=== PATIENT | female | born 1945 | race Caucasian/White ===

== ENCOUNTER 2018-10-25 23:55 | Emergency (ER) ==
--- NOTE | 2018-10-26 00:41 | ED.PDOC ---
General ED Provider: Dr. JARROD GALINDO Chief Complaint: Non-specific Complaint Stated Complaint: Patient complains of Feeling that a piece of meat is stuck in the upper esophagus near the base of neck. Has been coughing and gagging trying to get it out. Still able to breath on her own. Time Seen by Physician: 12:02 Mode of Arrival: Walk-In Information Source: Patient, Family Exam Limitations: Clinical condition (distress ) Primary Care Provider: VINAY VELASQUEZ Nursing and Triage Documentation Reviewed and Agree: Yes Does patient meet sepsis criteria?: No System Inflammatory Response Syndrome: Not Applicable Sepsis Protocol: For patient's 13 years and over: Temp is 96.8 and below OR 101 and greater Pulse >90 BPM Resp >20/minute Acutely Altered Mental Status Are patient's symptoms suggestive of a new infection, such as: -Pneumonia -Skin, Soft Tissue -Endocarditis -UTI -Bone, Joint Infection -Implantable Device -Acute Abdominal Infection -Wound Infection -Meningitis -Blood Stream Catheter Infection -Unknown Review of Systems - Review Of Systems Constitutional: Reports: No symptoms Ears, Nose, Mouth, Throat: Reports: Throat pain Respiratory: Reports: Cough Cardiac: Reports: No symptoms GI: Reports: Nausea : Reports: No symptoms Neurological: Reports: Anxiety Endocrine: Reports: No symptoms All Other Systems: Reviewed and Negative Past Medical History - Past Medical History Previously Healthy: Yes Endocrine: Reports: Hypothyroid Cardiovascular: Reports: None Respiratory: Reports: None Hematological: Reports: None Gastrointestinal: Reports: None Genitourinary: Reports: None Neuro/Psych: Reports: None Musculoskeletal: Reports: None Cancer: Reports: Lung - Surgical History General Surgical History: Reports: Unknown - Family History Family History: Reports: Unknown - Social History Smoking Status: Former smoker Physical Exam - Physical Exam Appearance: Ill-appearing Ill-appearing: Moderate Pain Distress: Severe Neck: Supple Respiratory: Airway patent, Breath sounds clear, Breath sounds equal, Respirations nonlabored Cardiovascular: RRR, Pulses normal, No rub, No murmur GI/: Soft, Nontender, No masses, Bowel sounds normal, No Organomegaly Musculoskeletal: Normal strength, ROM intact, No edema, No calf tenderness Skin: Warm, Dry Neurological: Sensation intact Psychiatric: Anxious Physician Notification - Case Discussed Physician Notified: Dr Wesley ( [facility] Physician) Time of Notification: 00:02 Critical Care Note - Critical Care Note Total Time (mins): 35 Course - Course Vital Signs: Temp Pulse Resp BP Pulse Ox 10/25/18 23:55 99.5 F 94 H 28 H 138/88 96 Departure - Departure Time of Disposition: 00:20 Disposition: [facility]ORT-TRM HOSP Discharge Problem: Foreign body alimentary tract Qualifiers: Encounter type: initial encounter Qualified Code(s): T18.9XXA - Foreign body of alimentary tract, part unspecified, initial encounter Condition: Fair Pt referred to PMD for follow-up: Yes IPMP verified?: No Allergies/Adverse Reactions: Allergies Unobtainable Allergy (Unverified 10/26/18 02:07) PT CHOKING, STATES " A FEW, BUT I DONT KNOW NOW", UNABLE TO LIST AT PRESENT Home Medications: Ambulatory Orders Amoxicillin/Potassium Clav [Augmentin 500-125 Tablet] 1 each PO TID 10/26/18 Hydrocodone/Acetaminophen [Hydrocodon-Acetaminophn 10-325] 1 each PO BID PRN Methadone HCl [Methadone] 10 mg PO TID 10/26/18 Pravastatin Sodium [Pravachol] 40 mg PO BEDTIME 10/26/18 Topiramate [Topamax] 25 mg PO BID 10/26/18 Pt. Stabilized Within Hospital's Capabilities/Transferred To: [facility] Transfer Form Completed: Yes Disposition Discussed With: Patient, Family (daughter )
[2018-10-26 02:02] VITALS: BP 138/88; TEMP 99.5; BMI 22.4
== END 2018-10-26 00:35 | disposition short-term general hospital (02) ==
LOC: ED 10-26 00:22
DX: T18.9XXA Foreign body of alimentary tract, part unspecified, initial encounter (principal); R05 Cough; R07.0 Pain in throat; F41.9 Anxiety disorder, unspecified
CPT/HCPCS: 99285

== ENCOUNTER 2018-10-26 00:44 | Outpatient (CLI) ==
[2018-10-26 02:02] VITALS: BMI 22.4
== END 2018-10-26 01:03 | disposition short-term general hospital (02) ==
LOC: AMBL 00:44
PROVIDERS: ATTEND Internal Medicine Geriatric Medicine
DX: T18.9XXA Foreign body of alimentary tract, part unspecified, initial encounter (principal); R13.10 Dysphagia, unspecified